=== PATIENT | male | born 1955 | race Caucasian/White ===

== ENCOUNTER 2018-06-16 06:55 | Day surgery (SDC) | payer BC ==
[2018-06-15 16:07] LABS: Absolute Lymphocytes (CBC) 2.3 K/uL (0.7-4.9); Absolute Monocytes 0.8 K/uL (0.1-1.3); Absolute Neutrophil 6.7 K/uL (1.8-8.0); Basophils % 0.5 % (0-1.3); Eosinophils % 2.4 % (0-4.4); Hematocrit 47.4 % (39.6-49.0); Lymphocytes % 22.4 % (15.3-44.8); MCH 29.7 pg (27.0-35.0); MCV 86.6 fL (80-100); MPV 9.4 fL (7.6-11.3); Monocytes % 8.2 % (3.3-12.3); RBC Red Blood Cell Count 5.47 M/uL (4.33-5.43)
[2018-06-15 16:14] LABS: Potassium 4.3 mmol/L (3.5-5.1)
--- NOTE | 2018-06-15 16:20 | RAD REPORT ---
EXAM DESCRIPTION: Tor Vázquez (2 Views)06/15/2018 4:10 pm CLINICAL HISTORY: Preop chest removing mass from the back COMPARISON: None FINDINGS: The lungs appear clear of acute infiltrate. The heart is normal size IMPRESSION: No acute abnormalities displayed
--- NOTE | 2018-06-15 16:26 | EKG ---
Test Date: 2018-06-15 Test Time: 15:53:23 Siene Maker: TCV MEASUREMENT RESULTS: Intervals: Rate: 85 SC: 166 QRSD: 72 QT: 358 QTc: 426 [place]: P: 37 SC: 166 QRS: 18 T: 23 INTERPRETIVE STATEMENTS: Normal sinus rhythm Normal ECG No previous ECG available for comparison Electronically Signed On 06-15-18 16:25:41 CDT by Moses Monroy
[~2018-06-16 06:55] MED LIST: CEFAZOLIN/SWI 1gm 1 GM/10 ML SYR IV SCH
[2018-06-16] MEDS ORDERED: Ringers Lactate 1,000 ML IV ONE (07:18)
[2018-06-16] MEDS ORDERED: CEFAZOLIN/SWI 1gm 1 GM/10 ML SYR ONE (07:18)
[2018-06-16] MEDS ORDERED: BUPIVACAINE 0.5% PF 10 ML VIAL ONE (07:37)
[2018-06-16] MEDS ORDERED: PROPOFOL 200 MG/20 ML VIAL IV ONE (07:38)
[2018-06-16] MEDS ORDERED: FENTANYL CITR 100 MCG/2 ML ONE (07:39)
[2018-06-16] MEDS ORDERED: MIDAZOLAM HCL 2 MG/2 ML INJ ONE (07:39)
[2018-06-16] MEDS ORDERED: ONDANSETRON HCL 40 MG/20 ML VIAL ONE (07:40)
[2018-06-16] MEDS ORDERED: HYDROCODONE/APAP 7.5/325 MG TAB ONE (09:55)
--- NOTE | 2018-06-16 20:24 | OP ---
Date of Procedure: 06/16/2018 Surgeon: Krishna Luque MD Preoperative Diagnosis: An infected sebaceous cyst in the back, 8 x 4 cm. Postoperative Diagnosis: An infected sebaceous cyst in the back, 8 x 4 cm. Procedure: Wide excision, infected sebaceous cyst, 8 x 4 cm, with layered closure. Estimated Blood Loss: Minimal. Specimen: C and S and infected cyst. Finding: As above. Anesthesia: General. Complications: None. Disposition: The patient tolerated the procedure in stable condition and was taken to Recovery in go od general condition. Procedure In Detail: The patient was brought to the OR and placed in supine position. General anest hesia was begun. The patient placed in the left lateral position, prepped and draped in usual steril e fashion. Marcaine 0.5% was infiltrated locally. A 15-blade was used to make an 8 x 4 cm wide exci elena to excise this infected sebaceous cyst all the way down through the subcutaneous tissue, deep la myke, and then excised. There was pus in it that was cultured. The wound was irrigated. Bleeding co ntrolled with cautery. Flaps created and then 2-0 chromic used to reapproximate the subcutaneous tis kristine in the proximal and distal aspects of the wound. The middle of the wound was left open and 2-0 n ylon was also used to secure the distal aspect of the wound to try to close as much of the wound with out tension as possible, however, because of the size of the cyst, could not completely close the wou nd and also there is concern for postop infection if we did close the wound, so the middle of the wou nd was left open, approximately 3 x 2 cm to allow for packing. Sterile dressing applied and then was patient awakened and taken to Recovery in good condition and discharged home. The patient will go t o Day Surgery and home when stable. /MODL Voice ID: [id number] Report ID: [id number]
--- NOTE | 2018-06-16 20:27 | DS ---
Date of Discharge: 06/16/2018 Disposition: Home. Condition: Stable. Discharge Instructions: Resume home medications and diet. Activity as tolerated. No heavy lifting. Remove outer dressing and wet-to-dry normal saline dressing changes daily. Tylenol No. 3 one table t p.o. q.4 p.r.n. pain Cipro 500 mg p.o. b.i.d. Follow up in my office in 2 weeks. Call for appoint ment. SENA/YESSICA Voice ID: [id number] Report ID: [id number]
== END 2018-06-16 10:29 | disposition home or self-care (01) ==
LOC: OR 06:55
PROVIDERS: ATTEND Surgery
PROC: 0JB70ZZ Excision of Back Subcutaneous Tissue and Fascia, Open Approach (ICD-10-PCS; principal; 2018-06-16 08:15)
DX: L72.3 Sebaceous cyst (principal); I10 Essential (primary) hypertension; Z91.041 Radiographic dye allergy status
CPT/HCPCS: 36415; 71046; 80048; 85025; 87070; 87075; 87205; 88304; 88305; 93005; J0690; J2250; J2405; J3010